=== PATIENT | male | born 1995 | race Caucasian/White ===

== ENCOUNTER 2024-05-27 23:54 | Emergency (ER) | payer OTHER ==
[2024-05-28 00:06] VITALS: BP 124/79; PULSE 79; RESP 18; TEMP 97.7; BMI 27.2
== END 2024-05-28 02:22 | disposition home or self-care (01) ==
LOC: JER 23:54
DX: L05.91 Pilonidal cyst without abscess (principal)
CPT/HCPCS: 99283-25